=== PATIENT | female | born 1975 | race Two or more races ===

== ENCOUNTER 2018-09-12 13:02 | Outpatient (CLI) | payer OTHER | END 2018-09-12 16:05 | disposition home or self-care (01) | LOC: MAMO-SONO 13:02 | DX: N60.11 Diffuse cystic mastopathy of right breast (principal); N60.12 Diffuse cystic mastopathy of left breast; Z12.31 Encounter for screening mammogram for malignant neoplasm of breast ==

== ENCOUNTER → 2020-12-08 | Outpatient (CLI) | payer OTHER | END | disposition home or self-care (01) | LOC: MAMO-SONO 08:45 | PROVIDERS: ATTEND Obstetrics & Gynecology Maternal & Fetal Medicine | DX: Z12.31 Encounter for screening mammogram for malignant neoplasm of breast (principal); N64.4 Mastodynia; N60.11 Diffuse cystic mastopathy of right breast ==

== ENCOUNTER 2022-09-06 14:00 | Outpatient (CLI) | payer OTHER | END 2022-09-06 14:04 | disposition home or self-care (01) | LOC: MAMO-SONO 14:00 | DX: Z12.31 Encounter for screening mammogram for malignant neoplasm of breast (principal) ==

== ENCOUNTER → 2023-10-01 08:36 | Outpatient (CLI) | payer OTHER ==
[2023-10-01 09:46] LABS: HEMATOCRIT 33.5 % (36.0-45.00); HEMOGLOBIN 11.3 g/dL (12.0-15.00); MEAN CELL VOLUME 89.3 fL (80.00-100.00); MEAN CORPUSCULAR HEMOGLOBIN 30.2 pg (27.00-32.0); MEAN CORPUSCULAR HGB CONC 33.8 g/dl (32.0-36.0); PLATELET COUNT 271 K/uL (150-450); RED BLOOD COUNT 3.75 M/uL (4.00-6.00)
[2023-10-01 09:52] LABS: PH,URINE 5.5 (5.0-8.0); URINE APPEARANCE Clear; URINE BILIRRUBIN Negative (NEGATIVE); URINE BLOOD Negative; URINE COLOR Yellow; URINE GLUCOSE Negative (NEGATIVE); URINE LEUKOCYTE Negative; URINE NITRATE Negative; URINE PROTEIN Negative (NEGATIVE)
[2023-10-01 09:56] LABS: URINE BACTERIA 1157.7 uL (0.0-1933); URINE EPITHELIAL CELLS 36.1 uL (0.0-38.8); URINE RBC 2.1 uL (0.0-20.8); URINE WBC 3.2 uL (0.0-23.2)
[2023-10-01 10:35] LABS: ALBUMIN 3.7 gm/dL (3.4-5.0); BILIRUBIN TOTAL 0.67 mg/dL (0.3-1.2); CALCIUM 8.8 mg/dL (8.5-10.1); CHOL HDL RATIO 2.9 (0-5.0); CREATININE SERUM 0.82 mg/dL (0.55-1.02); GFR 74.09; GLOBULINA 2.8 G/DL (2.4-3.5); POTASSIUM 3.99 mEq/L (3.5-5.1); TOTAL PROTEIN 6.5 gm/dL (6.4-8.2); TSH 1.28 uIU/mL (0.358-3.74)
[2023-10-03 05:06] LABS: LEUTEINIZING HORMONE 33.2 mIU/mL (.)
== END | disposition home or self-care (01) ==
LOC: LAB 08:36
PROVIDERS: ATTEND Obstetrics & Gynecology Maternal & Fetal Medicine
DX: E03.8 Other specified hypothyroidism (principal); D63.8 Anemia in other chronic diseases classified elsewhere; E78.00 Pure hypercholesterolemia, unspecified; R73.9 Hyperglycemia, unspecified; N39.0 Urinary tract infection, site not specified; K92.1 Melena; Z12.11 Encounter for screening for malignant neoplasm of colon; E55.9 Vitamin D deficiency, unspecified

== ENCOUNTER 2023-10-01 09:32 | Outpatient (CLI) | payer OTHER | END 2023-10-01 09:38 | disposition home or self-care (01) | LOC: MAMO-SONO 09:32 | PROVIDERS: ATTEND Obstetrics & Gynecology Maternal & Fetal Medicine | DX: N63 Unspecified lump in breast (principal); N64.4 Mastodynia; Z12.31 Encounter for screening mammogram for malignant neoplasm of breast; N60.11 Diffuse cystic mastopathy of right breast ==